=== PATIENT | male | born 1995 | race Two or more races ===

== ENCOUNTER 2019-01-11 21:37 | Emergency (ER) | payer MEDICAID ==
[~2019-01-11] VITALS: Ht 165.1 cm; Wt 64.0 kg
[2019-01-11] MEDS ORDERED: KETOROLAC 60MG/2ML VIAL IM ONE (22:45)
[2019-01-12 00:35] LABS: CHLORIDE 105 mEq/L (98-107)
[2019-01-12 02:04] VITALS: BP 136/85
== END 2019-01-12 02:07 | disposition home or self-care (01) ==
LOC: ER 21:37
DX: M62.838 Other muscle spasm (principal); M25.511 Pain in right shoulder; F31.9 Bipolar disorder, unspecified; F20.9 Schizophrenia, unspecified; F12.10 Cannabis abuse, uncomplicated
CPT/HCPCS: 36415; 73030; 80048; 96372; 99284; J1885